=== PATIENT | male | born 1945 | race Two or more races ===

== ENCOUNTER 2018-01-05 09:18 | Emergency (ER) | payer OTHER ==
[~2018-01-05] VITALS: Ht 190.5 cm; Wt 96.2 kg
[2018-01-05] MEDS ORDERED: FORTAMET500 MG (09:35)
[2018-01-05] MEDS ORDERED: LIPITOR20 MG (09:35)
[2018-01-05] MEDS ORDERED: JANUMET 50-1,01 EACH (09:35)
[2018-01-05] MEDS ORDERED: DIOVAN320 MG (09:36)
[2018-01-05] MEDS ORDERED: DICLOFENAC SODI50 MG PO (12:30)
[2018-01-05] MEDS ORDERED: NORFLEX100MG PO (12:30)
== END 2018-01-05 12:45 | disposition home or self-care (01) ==
LOC: ER 09:18
DX: S39.012A Strain of muscle, fascia and tendon of lower back, initial encounter (principal); S13.4XXA Sprain of ligaments of cervical spine, initial encounter; V49.9XXA Car occupant (driver) (passenger) injured in unspecified traffic accident, initial encounter; Y93.89 Activity, other specified; Y92.488 Other paved roadways as the place of occurrence of the external cause; Y99.8 Other external cause status

== ENCOUNTER 2018-07-19 14:03 | Outpatient (CLI) | payer OTHER ==
[~2018-07-19 14:03] MED LIST: DICLOFENAC SODI50 MG PO; DIOVAN320 MG; FORTAMET500 MG; JANUMET 50-1,01 EACH; LIPITOR20 MG; NORFLEX100MG PO
== END 2018-07-19 16:34 | disposition home or self-care (01) ==
LOC: RAD 501 14:03
DX: J30.1 Allergic rhinitis due to pollen (principal); J45.31 Mild persistent asthma with (acute) exacerbation

== ENCOUNTER → 2019-03-23 | Outpatient (CLI) | payer OTHER | END | disposition home or self-care (01) | LOC: RAD 08:21 | DX: J30.1 Allergic rhinitis due to pollen (principal); J45.41 Moderate persistent asthma with (acute) exacerbation; R06.02 Shortness of breath ==

== ENCOUNTER 2019-04-08 07:28 | Outpatient (CLI) | payer OTHER | END 2019-04-08 09:08 | disposition home or self-care (01) | LOC: SONOGRAMA 07:28 | DX: R10.13 Epigastric pain (principal) ==

== ENCOUNTER 2020-06-26 09:01 | Outpatient (CLI) | payer OTHER | END 2020-06-26 09:08 | disposition home or self-care (01) | LOC: RAD 09:01 | PROVIDERS: ATTEND Ophthalmology | DX: Z01.811 Encounter for preprocedural respiratory examination (principal); H25.11 Age-related nuclear cataract, right eye ==

== ENCOUNTER 2021-01-25 10:09 | Outpatient (CLI) | payer OTHER | END 2021-01-25 10:17 | disposition home or self-care (01) | LOC: RAD 10:09 | PROVIDERS: ATTEND Internal Medicine Pulmonary Disease | DX: J45.41 Moderate persistent asthma with (acute) exacerbation (principal); J30.1 Allergic rhinitis due to pollen; R06.02 Shortness of breath ==

== ENCOUNTER 2021-04-12 09:08 | Outpatient (CLI) | payer OTHER | END 2021-04-12 09:14 | disposition home or self-care (01) | LOC: SONOGRAMA 09:08 → MAMO-SONO 09:45 | PROVIDERS: ATTEND Internal Medicine Gastroenterology | DX: R10.84 Generalized abdominal pain (principal); R10.13 Epigastric pain ==

== ENCOUNTER 2021-07-21 19:25 | Emergency (ER) | payer OTHER ==
[~2021-07-21] VITALS: Ht 190.5 cm; Wt 97.5 kg
[2021-07-21] MEDS ORDERED: METFORMIN HCL1000 M2 PO (19:42)
[2021-07-21] MEDS ORDERED: JANUMET XR 1001 EACH PO (19:43)
[2021-07-21] MEDS ORDERED: ACETAMINOPHEN500 M2 PO (21:58)
[2021-07-21] MEDS ORDERED: ORPHENADRINE C100 MG PO (21:58)
== END 2021-07-21 22:31 | disposition home or self-care (01) ==
LOC: ER 19:25
DX: S30.0XXA Contusion of lower back and pelvis, initial encounter (principal); M54.59 Other low back pain; W10.8XXA Fall (on) (from) other stairs and steps, initial encounter; Y93.89 Activity, other specified; Y92.89 Other specified places as the place of occurrence of the external cause; Y99.8 Other external cause status

== ENCOUNTER 2021-09-06 18:32 | Emergency (ER) | payer OTHER ==
[~2021-09-06] VITALS: Ht 190.5 cm; Wt 97.5 kg
[~2021-09-06 18:32] MED LIST changes: +ACETAMINOPHEN500 M2 PO; +JANUMET XR 1001 EACH PO; +METFORMIN HCL1000 M2 PO; +ORPHENADRINE C100 MG PO
[2021-09-06] MEDS ORDERED: PROTONIX20 MG (18:42)
[2021-09-06] MEDS ORDERED: PRILOSEC OTC20 MG (18:42)
[2021-09-06] MEDS ORDERED: AVAPRO300 MG (18:43)
[2021-09-06] MEDS ORDERED: HYDROCHLOROTHIA25 MG (18:43)
== END 2021-09-06 22:10 | disposition home or self-care (01) ==
LOC: ER 18:32
DX: R53.81 Other malaise (principal); F43.0 Acute stress reaction

== ENCOUNTER 2021-11-13 11:06 | Outpatient (CLI) | payer OTHER ==
[~2021-11-13 11:06] MED LIST changes: +AVAPRO300 MG; +HYDROCHLOROTHIA25 MG; +PRILOSEC OTC20 MG; +PROTONIX20 MG
== END 2021-11-13 11:11 | disposition home or self-care (01) ==
LOC: RAD 11:06
DX: Z01.818 Encounter for other preprocedural examination (principal)

== ENCOUNTER 2022-02-28 09:56 | Outpatient (CLI) | payer OTHER | END 2022-02-28 10:01 | disposition home or self-care (01) | LOC: RAD 09:56 | PROVIDERS: ATTEND Ophthalmology | DX: Z01.810 Encounter for preprocedural cardiovascular examination (principal) ==

== ENCOUNTER 2022-03-06 09:57 | Emergency (ER) | payer OTHER ==
[~2022-03-06] VITALS: Ht 190.5 cm; Wt 99.8 kg
== END 2022-03-06 12:15 | disposition home or self-care (01) ==
LOC: ER 09:57
DX: R55 Syncope and collapse (principal); F41.0 Panic disorder [episodic paroxysmal anxiety]; F43.0 Acute stress reaction; Z20.822 Contact with and (suspected) exposure to COVID-19

== ENCOUNTER 2022-03-14 07:55 | Outpatient (CLI) | payer OTHER | END 2022-03-14 08:00 | disposition home or self-care (01) | LOC: TOM 07:55 | DX: R10.13 Epigastric pain (principal) ==

== ENCOUNTER 2022-05-21 07:25 | Outpatient (CLI) | payer OTHER | END 2022-05-21 07:30 | disposition home or self-care (01) | LOC: SONOGRAMA 07:25 | PROVIDERS: ATTEND Specialist/Technologist, Other Nephrology | DX: R10.9 Unspecified abdominal pain (principal); N18.30 Chronic kidney disease, stage 3 unspecified; R31.9 Hematuria, unspecified ==

== ENCOUNTER 2022-09-29 10:35 | Outpatient (CLI) | payer OTHER | END 2022-09-29 10:39 | disposition home or self-care (01) | LOC: RAD 10:35 | DX: Z01.818 Encounter for other preprocedural examination (principal) ==

== ENCOUNTER 2022-10-10 07:51 | Outpatient (CLI) | payer OTHER | END 2022-10-10 07:57 | disposition home or self-care (01) | LOC: SONOGRAMA 07:51 | DX: R10.11 Right upper quadrant pain (principal) ==

== ENCOUNTER 2023-05-27 16:47 | Emergency (ER) | payer OTHER ==
[~2023-05-27] VITALS: Ht 190.5 cm; Wt 109.3 kg
== END 2023-05-27 17:50 | disposition home or self-care (01) ==
LOC: ER 16:47
DX: I10 Essential (primary) hypertension (principal)

== ENCOUNTER 2023-05-29 06:20 | Emergency (ER) | payer OTHER ==
[~2023-05-29] VITALS: Ht 190.5 cm; Wt 98.4 kg
[2023-05-29] MEDS ORDERED: JARDIANCE25 MG (06:36)
[2023-05-29] MEDS ORDERED: ECOTRIN81 MG (06:37)
[2023-05-29] MEDS ORDERED: HYDRALAZINE HCL50 MG (06:38)
[2023-05-29] MEDS ORDERED: AMLODIPINE-OLM1 EACH (06:38)
[2023-05-29] MEDS ORDERED: TOPROL XL100 M1 (06:38)
[2023-05-29] MEDS ORDERED: PEPCID AC20 MG (06:40)
[2023-05-29 07:42] LABS: HEMATOCRIT 38.5 % (39.0-48.0); HEMOGLOBIN 12.3 g/dL (13-16.00); MEAN CELL VOLUME 92.4 fL (80.0-100.00); MEAN CORPUSCULAR HEMOGLOBIN 29.5 pg (27.00-32.0); PLATELET COUNT 189 K/uL (150-450); RED BLOOD COUNT 4.17 M/uL (4.00-6.00); RED CELL DISTRIBUTION WIDTH 14.5 % (11.5-14.5)
[2023-05-29 08:07] LABS: INR 1.05; PARTIAL THROMBOPLASTIN TIME 26.6 SECONDS (22.0-34.0)
[2023-05-29 08:21] LABS: ALBUMIN 3.5 gm/dL (3.4-5.0); BILIRUBIN TOTAL 0.56 mg/dL (0.3-1.2); CALCIUM 8.8 mg/dL (8.5-10.1); CREATININE SERUM 1.37 mg/dL (0.70-1.30); GFR 50.52; GLOBULINA 2.8 G/DL (2.4-3.5); POTASSIUM 3.84 mEq/L (3.5-5.1); TOTAL PROTEIN 6.3 gm/dL (6.4-8.2)
[2023-05-29] MEDS ORDERED: ATORVASTATIN CA20 MG PO (09:01)
== END 2023-05-29 10:11 | disposition home or self-care (01) ==
LOC: ER 06:20
PROVIDERS: General Practice
DX: R10.13 Epigastric pain (principal); R07.89 Other chest pain; I10 Essential (primary) hypertension; Z20.822 Contact with and (suspected) exposure to COVID-19
CPT/HCPCS: 36415; 71045; 93005; 96365; 99284; J3490

== ENCOUNTER 2023-08-21 10:37 | Outpatient (CLI) | payer OTHER ==
[~2023-08-21 10:37] MED LIST changes: +AMLODIPINE-OLM1 EACH; +ATORVASTATIN CA20 MG PO; +ECOTRIN81 MG; +HYDRALAZINE HCL50 MG; +JARDIANCE25 MG; +PEPCID AC20 MG; +TOPROL XL100 M1
== END 2023-08-21 10:45 | disposition home or self-care (01) ==
LOC: RAD 10:37
PROVIDERS: ATTEND Internal Medicine Pulmonary Disease
DX: J30.1 Allergic rhinitis due to pollen (principal); J45.31 Mild persistent asthma with (acute) exacerbation

== ENCOUNTER → 2023-09-03 | Outpatient (CLI) | payer OTHER | END | disposition home or self-care (01) | LOC: TOM 09:40 | DX: G44.89 Other headache syndrome (principal) ==

== ENCOUNTER 2024-04-27 09:24 | Outpatient (CLI) | payer OTHER | END 2024-04-27 09:35 | disposition home or self-care (01) | LOC: MRI 09:24 | DX: G44.89 Other headache syndrome (principal) | CPT/HCPCS: 70551 ==

== ENCOUNTER 2024-05-10 12:33 | Emergency (ER) | payer OTHER ==
[~2024-05-10] VITALS: Ht 190.5 cm; Wt 97.5 kg
[2024-05-10] MEDS ORDERED: NIFEDIPINE 20 MG CAPSULE PO ONE (13:15)
[2024-05-10] MEDS ORDERED: 0.9 % SODIUM CHLORIDE 1,000 ML IV ONE (13:15)
[2024-05-10] MEDS ORDERED: FAMOtidine 10 MG/ML (4ML VIAL) IV ONE (13:15)
[2024-05-10 13:30] LABS: HEMATOCRIT 36.8 % (39.0-48.0); HEMOGLOBIN 12.4 g/dL (13-16.00); MEAN CELL VOLUME 93.7 fL (80.0-100.00); MEAN CORPUSCULAR HEMOGLOBIN 31.5 pg (27.00-32.0); MEAN CORPUSCULAR HGB CONC 33.6 g/dl (32.0-36.0); PLATELET COUNT 184 K/uL (150-450); RED BLOOD COUNT 3.92 M/uL (4.00-6.00); RED CELL DISTRIBUTION WIDTH 13.8 % (11.5-14.5)
[2024-05-10 13:58] LABS: ALBUMIN 3.7 gm/dL (3.4-5.0); BILIRUBIN TOTAL 0.4 mg/dL (0.3-1.2); CALCIUM 9.2 mg/dL (8.5-10.1); CREATININE SERUM 1.62 mg/dL (0.70-1.30); GFR 41.52; GLOBULINA 3.5 G/DL (2.4-3.5); POTASSIUM 3.94 mEq/L (3.5-5.1); TOTAL PROTEIN 7.2 gm/dL (6.4-8.2)
== END 2024-05-10 16:58 | disposition home or self-care (01) ==
LOC: ER 12:35
PROVIDERS: General Practice
DX: I10 Essential (primary) hypertension (principal); E11.9 Type 2 diabetes mellitus without complications; Z79.84 Long term (current) use of oral hypoglycemic drugs
CPT/HCPCS: 36415; 71045; 93005; 96365; 96366; 99283; J3490; J7030

== ENCOUNTER 2024-06-02 15:13 | Emergency (ER) | payer OTHER ==
[~2024-06-02] VITALS: Ht 182.9 cm; Wt 81.6 kg
== END 2024-06-02 17:10 | disposition home or self-care (01) ==
LOC: ER 15:15
DX: I10 Essential (primary) hypertension (principal); E11.9 Type 2 diabetes mellitus without complications; Z79.84 Long term (current) use of oral hypoglycemic drugs